=== PATIENT | male | born 1990 | race Caucasian/White ===

== ENCOUNTER 2024-09-09 17:38 | Emergency (ER) | payer SELFPAY ==
[~2024-09-09] VITALS: Ht 177.8 cm; Wt 81.6 kg
[2024-09-09 18:20] LABS: PLATELET COUNT (AUTO) 302 K/uL (150-450); RED BLOOD CELL COUNT(AUTO) 4.91 MIL/uL (4.5-6.0); RED CELL DISTRIBUTION WIDTH 13.1 % (11.5-15.0); WHITE BLOOD COUNT (AUTO) 5.5 K/uL (4.3-11.0)
[2024-09-09] MEDS ORDERED: LORAZEPAM INJ 2 MG/ML VIAL ONE (18:24)
[2024-09-09 18:29] LABS: CALCIUM, SERUM 9.1 mg/dL (8.5-10.1); CREATININE 1.1 mg/dL (0.6-1.3); SODIUM SERUM 139 mmol/L (136-145); UREA NITROGEN, BLOOD 19 mg/dL (7-18)
[2024-09-09] MEDS: LORAZEPAM INJ 2 MG/ML VIAL IV ONE (18:31)
[2024-09-09] MEDS: IV NS 0.9% 1,000 ML BAG IV ONE (18:32)
[2024-09-09 18:42] LABS: ASPARTATE AMINOTRANSFERASE 74 U/L (15-37); NT-PRO BNP 24 pg/mL (0-125); TOTAL PROTEIN, SERUM 8.1 g/dL (6.4-8.2)
[2024-09-09 19:46] VITALS: BP 128/71; TEMP 98.1; O2SAT 98
== END 2024-09-09 19:47 | disposition home or self-care (01) ==
LOC: ER 18:22
DX: R25.1 Tremor, unspecified (principal); R06.02 Shortness of breath
CPT/HCPCS: 99285; 96374; 71045; 96361; 93005; 85025; 80048; 80076; 36415; 84484; 83880; 82962; J2060; J7030